=== PATIENT | male | born 1990 | race Caucasian/White ===

== ENCOUNTER → 2020-10-27 | Day surgery (SDC) | payer OTHER ==
[2020-10-24 11:45] VITALS: BMI 35.6
[~2020-10-27] MED LIST: LACTATED RINGERS 1,000 ML IV SCH; LIDOCAINE 1% (10MG/ML) FOR IV START INTRADERMA PRN; MIDAZOLAM 2 MG/2 ML VIAL ONE; PROPOFOL 10 MG/ML 20 ML VIAL IV ONE
[2020-10-27 08:51] VITALS: TEMP 98.4
--- NOTE | 2020-10-27 09:36 | P.PCN ---
Date of Procedure: 10/27/20 Description of Procedure: BRIEF HISTORY: Patient is a 30-year-old male presents for outpatient colonoscopy for evaluation of Crohn's disease. The patient reports that he was diagnosed at the age of 10. He has been on oral 5ASA agents throughout high school and has had trials of biologic therapies twice in the past. Currently he is on Pentasa. He continues to have symptoms of frequent bowel movements, pain and blood per rectum. PROCEDURE PERFORMED: Colonoscopy with biopsy. PREOPERATIVE DIAGNOSIS: Crohn's disease, altered bowel function. ESTIMATED BLOOD LOSS: Minimal. IV sedation per Anesthesia. PROCEDURE: After informed consent was obtained, the patient, was brought into the endoscopy unit. IV sedation was administered by Anesthesia under continuous monitoring. Digital rectal examination was normal. Initially the Olympus CF-190 flexible video colonoscope was then inserted in the rectum, gradually advanced into the cecum without any difficulty. Careful examination was performed as the scope was gradually being withdrawn. Ileocecal valve and the appendiceal orifice were visualized and appeared normal. Prep was excellent. Mucosa of the transverse colon, descending colon, sigmoid colon, and rectum appeared normal, however erythema, superficial erosions and friability were noted in the right colon consistent with moderate to severe right-sided colitis. The terminal ileum was intubated and appeared normal. Biopsies were taken of the terminal ileum, right colon, transverse colon, left colon and rectum. Retroflexion was performed in the rectum and no lesions were seen. The patient tolerated the procedure well. IMPRESSION: Moderate to severe right-sided colitis. Otherwise normal-appearing colon and terminal ileum. Random biopsies taken of the terminal ileum, right colon, transverse colon, left colon and rectum. RECOMMENDATIONS: Findings of this examination were discussed with the patient.. Okay to resume medications. Continue Pentasa therapy for now. Await pathology from biopsies. Patient will likely need escalation in medical therapy and consideration for trial of biologic therapy given active disease. He should follow-up in the GI office in the next 2-3 weeks
[2020-10-27 09:47] VITALS: BP 125/60; PULSE 78; RESP 16
== END ==
LOC: ORWHC2ENDO 07:56
PROVIDERS: ATTEND Internal Medicine
DX: K50.00 Crohn's disease of small intestine without complications (principal); K50.90 Crohn's disease, unspecified, without complications; K52.9 Noninfective gastroenteritis and colitis, unspecified; I10 Essential (primary) hypertension; F17.200 Nicotine dependence, unspecified, uncomplicated; M32.9 Systemic lupus erythematosus, unspecified; D69.3 Immune thrombocytopenic purpura; Z88.2 Allergy status to sulfonamides; Z88.6 Allergy status to analgesic agent; Z79.899 Other long term (current) drug therapy; Z98.890 Other specified postprocedural states; Z90.89 Acquired absence of other organs
CPT/HCPCS: 45380; J2250; J2704; 88305

== ENCOUNTER → 2023-02-26 | Outpatient (CLI) | payer OTHER ==
[2023-02-27 02:23] LABS: Albumin 4.5 g/dL (3.8-4.9); Albumin/Globulin Ratio 1.8 (1.60-3.17); Anion Gap 9.8 mmol/L (10.00-18.00); BUN/Creat Ratio 14.75 Ratio (12.00-20.00); Blood Urea Nitrogen 11.8 mg/dL (9.0-27.0); Calcium 9.7 mg/dL (8.7-10.3); Carbon Dioxide 28.2 mmol/L (20.0-27.5); Globulin 2.5 g/dL (1.6-3.3); Non-African American GFR(CKD) 117.4 (60.0-200.0); Potassium 4.5 mmol/L (3.5-5.5); Total Bilirubin 0.6 mg/dL (0.30-1.20)
[2023-02-27 02:30] LABS: Basophils # (A) 0.03 X 10*3/uL (0.00-0.10); Basophils % (A) 0.4 %; Eosinophils # (A) 0.18 X 10*3/uL (0.04-0.35); Eosinophils % (A) 2.1 %; HCT 47.8 % (39.6-50.0); HGB 15.7 g/dL (13.0-17.0); Immature Grans, Automated 0.5 %; Lymphocytes # (A) 2.45 X 10*3/uL (0.90-5.00); MCH 30.1 pg (27.0-32.0); MCHC 32.8 g/dL (32.0-37.0); MCV 91.7 fL (80.0-97.0); Mean Platelet Volume 9.6 fL (9.5-12.2); Monocytes # (A) 0.63 X 10*3/uL (0.20-1.00); Monocytes % (A) 7.4 %; NRBC Per 100 WBC 0 /100 WBCS (0.0-0.0); Neutrophils # (A) 5.13 X 10*3/uL (1.80-7.70); Neutrophils % (A) 60.6 %; Platelet Count 300 X 10*3/uL (140-440); RBC 5.21 X 10*6/uL (4.40-5.60); RDW 11.9 % (11.5-14.5); WBC 8.46 X 10*3/uL (4.50-10.00)
== END | disposition home or self-care (01) ==
LOC: LABWHC1 14:52
PROVIDERS: ATTEND Nurse Practitioner Family
DX: K50.80 Crohn's disease of both small and large intestine without complications (principal)
CPT/HCPCS: 36415; 80053; 85025

== ENCOUNTER 2023-04-09 09:24 | Day surgery (SDC) | payer OTHER ==
[~2023-04-09 09:24] MED LIST changes: -LACTATED RINGERS 1,000 ML IV SCH; -MIDAZOLAM 2 MG/2 ML VIAL ONE; -PROPOFOL 10 MG/ML 20 ML VIAL IV ONE
[2023-04-09 09:43] VITALS: TEMP 97.9
[2023-04-09] MEDS: LACTATED RINGERS 1,000 ML IV SCH ×2 (09:50→10:23)
[2023-04-09] MEDS ORDERED: PROPOFOL 10 MG/ML 20 ML VIAL IV ONE (10:33)
--- NOTE | 2023-04-09 10:47 | P.PCN ---
Date of Procedure: 04/09/23 Procedure(s) Performed: BRIEF HISTORY: Patient is a 32-year-old pleasant white female scheduled for an elective colonoscopy as a part of surveillance of long-standing history of Crohn's colitis diagnosed at least 10. He is presently maintained on Humira injections every 2 weeks and remains in clinical remission. He scheduled for a surveillance colonoscopy today. PROCEDURE PERFORMED: Colonoscopy with random biopsies. PREOPERATIVE DIAGNOSIS: Long-standing history of Crohn's colitis diagnosed in 1999. IV sedation per Anesthesia. PROCEDURE: After informed consent was obtained, the patient, was brought into the endoscopy unit. IV sedation was administered by Anesthesia under continuous monitoring. Digital rectal examination was normal. Initially the Olympus CF-160 flexible video colonoscope was then inserted in the rectum, gradually advanced into the cecum without any difficulty. Careful examination was performed as the scope was gradually being withdrawn. Ileocecal valve and the appendiceal orifice were visualized and appeared normal. Prep was excellent. Mucosa of the cecum, appeared normal. Terminal ileum was intubated and 20 cm visualized appeared normal. There was mild colitis involving the ascending colon with mucosal erythema and friability and some granularity and biopsies were done from this area. Rest of the ascending colon, transverse colon, descending colon, sigmoid colon, and rectum appeared normal. Random biopsies were done from cecum to rectum at every 10 cm into well to rule out dysplasia. Retroflexion was performed in the rectum and no lesions were seen. The patient tolerated the procedure well. IMPRESSION: Mild active colitis involving the ascending colon with mucosal erythema and friability status post biopsies Rest of the colon appeared normal Terminal ileum normal RECOMMENDATIONS: Findings of this examination were discussed with the patient as well as his family. He was advised to follow with the biopsy results. He will continue with Humira injections every 2 weeks. If the biopsy does not show any evidence of dysplasia, he can have a repeat colonoscopy in 2 years.
[2023-04-09 11:04] VITALS: BP 122/80; PULSE 58; RESP 14
== END 2023-04-09 11:26 | disposition home or self-care (01) ==
LOC: ORWHC2ENDO 09:24
PROVIDERS: ATTEND Internal Medicine Gastroenterology
DX: K50.10 Crohn's disease of large intestine without complications (principal); K52.9 Noninfective gastroenteritis and colitis, unspecified; I10 Essential (primary) hypertension; G47.33 Obstructive sleep apnea (adult) (pediatric); Z88.2 Allergy status to sulfonamides; Z79.899 Other long term (current) drug therapy
CPT/HCPCS: 88305; 45380; J2704

== ENCOUNTER → 2025-03-17 | Outpatient (CLI) | payer BC ==
--- NOTE | 2025-03-18 09:49 | CA ---
Transthoracic Echo Report Name: Mansoor Galvez Age: 34 Gender: M : 1990 Exam Date: 03/17/2025 14:06 Exam Location: [place] [facility] Ht (in): 72 Wt (lb): 235 Ordering Physician: Lino Grossman MD Attending/Referring Phys: Lino Grossman MD [employer] Shanique [facility] Procedure CPT: Indications: R00.2 palpitations Cardiac Hx: Technical Quality: Good Contrast 1: Total Dose (mL): Contrast 2: Total Dose (mL): MEASUREMENTS (Male / Female) Normal Values 2D ECHO LV Diastolic Diameter PLAX 4.6 cm 4.2 - 5.9 / 3.9 - 5.3 cm LV Systolic Diameter PLAX 3.5 cm IVS Diastolic Thickness 1.2 cm 0.6 - 1.0 / 0.6 - 0.9 cm LVPW Diastolic Thickness 1.3 cm 0.6 - 1.0 / 0.6 - 0.9 cm LV Relative Wall Thickness 0.6 RV Internal Dim ED PLAX 3.1 cm LA Systolic Diameter LX 4.0 cm 3.0 - 4.0 / 2.7 - 3.8 cm LV Diastolic Volume MOD BP 113.4 cm??? 67 - 155 / 56 - 104 cm??? LV Systolic Volume MOD BP 40.4 cm??? / 19 - 49 cm??? LV Ejection Fraction MOD BP 64.4 % >= 55 % LV Cardiac Index MOD BP 2107.6 cm???/min???m??? LV Diastolic Volume MOD 4C 114.9 cm??? LV Systolic Volume MOD 4C 42.5 cm??? LV Ejection Fraction MOD 4C 63.0 % LV Cardiac Index MOD 4C 2090.2 cm???/min???m??? LV Diastolic Length 4C 8.3 cm LV Systolic Length 4C 7.1 cm LV Diastolic Volume MOD 2C 111.5 cm??? LV Systolic Volume MOD 2C 38.1 cm??? LV Ejection Fraction MOD 2C 65.9 % LV Cardiac Index MOD 2C 2120.7 cm???/min???m??? LV Diastolic Length 2C 8.3 cm LV Systolic Length 2C 7.2 cm LA Volume 72.9 cm??? 18 - 58 / 22 - 52 cm??? LA Volume Index 30.9 cm???/m??? 16 - 28 cm???/m??? M-MODE Aortic Root Diameter MM 2.9 cm LA Systolic Diameter MM 3.7 cm LA Ao Ratio MM 1.3 AV Cusp Separation MM 2.0 cm DOPPLER MV Area PHT 2.6 cm??? Mitral E Point Velocity 74.8 cm/s Mitral A Point Velocity 66.6 cm/s Mitral E to A Ratio 1.1 MV Deceleration Time 288.2 ms TR Peak Velocity 189.8 cm/s TR Peak Gradient 14.4 mmHg FINDINGS Left Ventricle Left ventricular ejection fraction is estimated at 60-65 %. Mildly increased septal wall thickness. Normal left ventricular systolic function with no obvious regional wall motion abnormalities. Left ventricular cavity size normal. Right Ventricle Normal right ventricular size and function. Right ventricular systolic pressure within normal limits. Right Atrium Mild right atrial dilatation. Left Atrium Mildly increased left atrial volume. Mildly increased left atrial area. Mitral Valve Structurally normal mitral valve. Trace mitral regurgitation. No mitral stenosis. Aortic Valve Trileaflet aortic valve. No aortic valve stenosis or regurgitation. Tricuspid Valve Structurally normal tricuspid valve. Trace tricuspid regurgitation. No tricuspid stenosis. Pulmonic Valve Structurally normal pulmonic valve. Trace pulmonic regurgitation. No pulmonic stenosis. Pericardium No pericardial or pleural effusion. Aorta Normal size aortic root and proximal ascending aorta. CONCLUSIONS Diagnosis recurrent palpitations Normal LV size and function Normal RV size and function Mild biatrial enlargement Thickened pericardium without effusion Previewed by: Dr. Alexie Collado MD (Electronically Signed) Final Date: 18 Mar 2025 09:48
== END | disposition home or self-care (01) ==
LOC: RADECHMAIN 14:02
PROVIDERS: ATTEND Family Medicine
DX: R00.2 Palpitations (principal)
CPT/HCPCS: 93306

== ENCOUNTER 2025-04-06 09:45 | Day surgery (SDC) | payer BC ==
[2025-04-05 10:41] VITALS: BMI 31.8
[2025-04-06 10:20] VITALS: RESP 16; TEMP 97.5
[2025-04-06] MEDS: IV FLUID CONTINUATION 1,000 ML IV ONE (10:31)
[2025-04-06] MEDS: LACTATED RINGERS 1,000 ML IV SCH (10:32)
[2025-04-06] MEDS ORDERED: PROPOFOL 10 MG/ML 20 ML VIAL IV ONE (10:48)
--- NOTE | 2025-04-06 11:07 | P.PCN ---
Date of Procedure: 04/06/25 Procedure(s) Performed: BRIEF HISTORY: Patient is a 34-year-old pleasant white male scheduled for an elective colonoscopy as a part of screening for longstanding history of Crohn's colitis diagnosed at age 10. He is maintained on Simlandi injections every 2 weeks and remains in clinical remission. PROCEDURE PERFORMED: Colonoscopy with random biopsies. PREOPERATIVE DIAGNOSIS: Screening for long standing history of Crohn's colitis. IV sedation per Anesthesia. PROCEDURE: After informed consent was obtained, the patient, was brought into the endoscopy unit. IV sedation was administered by Anesthesia under continuous monitoring. Digital rectal examination was normal. Initially the Olympus CF-160 flexible video colonoscope was then inserted in the rectum, gradually advanced into the cecum without any difficulty. Careful examination was performed as the scope was gradually being withdrawn. Ileocecal valve and the appendiceal orifice were visualized and appeared normal. Prep was excellent. Terminal ileum was intubated and 20 cm visualized and appeared normal. Mucosa of the cecum, ascending colon, transverse colon, descending colon, sigmoid colon, and rectum appeared normal. Retroflexion was performed in the rectum and no lesions were seen. Biopsies were done from cecum to rectum at every 10 cm intervals to rule out dysplasia the patient tolerated the procedure well. IMPRESSION: Normal-appearing colon from rectum to cecum with no evidence of active colitis or colorectal neoplasia. RECOMMENDATIONS: Findings of this examination were discussed with the patient as well as his family. He was advised to follow-up with the biopsy results. If there is no evidence of dysplasia he can have repeat colonoscopy in 2 years..
[2025-04-06 11:24] VITALS: BP 100/51; PULSE 53
== END 2025-04-06 11:51 | disposition home or self-care (01) ==
LOC: ORWHC2ENDO 09:45
PROVIDERS: ATTEND Internal Medicine Gastroenterology
DX: K50.10 Crohn's disease of large intestine without complications (principal); I10 Essential (primary) hypertension; F41.9 Anxiety disorder, unspecified; Z79.899 Other long term (current) drug therapy; Z88.2 Allergy status to sulfonamides; Z88.6 Allergy status to analgesic agent; Z90.89 Acquired absence of other organs
CPT/HCPCS: 88305; 45380; J2704